=== PATIENT | male | born 1960 | race Caucasian/White ===

== ENCOUNTER 2019-07-04 17:05 | Observation (INO) ==
[2019-07-04] MEDS ORDERED: Aspirin 325 MG TABLET PO ONE (17:29)
[2019-07-04 18:11] LABS: Basophils # 0.1 K/mcL (0.0-0.2); Basophils % 0.5 %; Eosinophils # 0.4 K/mcL (0.0-0.6); Eosinophils % 3.8 %; Hemoglobin 15.1 g/dL (12.9-16.9); Immature Granulocytes % 0.5 % (0-4); Lymphocytes # 4.1 K/mcL (0.6-4.6); Lymphocytes % 36.5 %; Mean Corpuscular HGB Conc 33.6 g/dL (31.6-35.5); Mean Corpuscular Hemoglobin 29.7 pg (28.0-33.3); Mean Corpuscular Volume 88.4 fL (83.0-100.0); Monocytes # 0.9 K/mcL (0.0-1.3); Monocytes % 8.3 %; Neutrophils # 5.7 K/mcL (1.6-8.9); Platelet Count 214 K/mcL (140-400); Red Blood Count 5.09 M/mcL (4.19-5.50); Red Cell Distribution Width 12.5 % (11.5-14.5); Segmented Neutrophils % 50.4 %; White Blood Count 11.2 K/mcL (4.3-11.1)
[2019-07-04 18:38] LABS: BUN/Creatinine Ratio 12 (6-26); Blood Urea Nitrogen 14 mg/dL (6-20); Calcium 9.4 mg/dL (8.6-10.3); Carbon Dioxide 25 mEq/L (23-29); Chloride 102 mEq/L (98-107); Glucose 142 mg/dL (70-105); Osmolality,Calculated 287 (280-300); Potassium 3.5 mEq/L (3.5-5.1); Sodium 137 mEq/L (136-145); Troponin I < 0.03 ng/mL (< 0.04); eGFR For African Americans > 60 (> 60); eGFR For Non-African Americans > 60 (> 60)
[2019-07-04] MEDS ORDERED: Naloxone 0.4 MG/ML INJ IVP PRN (21:46)
[2019-07-04] MEDS ORDERED: Mag Hydrox/Al Hydrox/Simeth 30 ML UDC PO PRN (21:46)
[2019-07-04] MEDS ORDERED: Acetaminophen 325 MG TABLET PO PRN (21:46)
[2019-07-04] MEDS ORDERED: Ondansetron ODT 4 MG TAB.RAPDIS SL PRN (21:46)
[2019-07-04] MEDS ORDERED: GI Cocktail 40 ML EACH PO PRN (22:22)
[2019-07-05 01:04] LABS: Hematocrit 45.6 % (37.5-50.1); Hemoglobin 15.3 g/dL (12.9-16.9); Mean Corpuscular HGB Conc 33.6 g/dL (31.6-35.5); Mean Corpuscular Hemoglobin 29.7 pg (28.0-33.3); Mean Corpuscular Volume 88.5 fL (83.0-100.0); Mean Platelet Volume 10.8 fL (9.4-12.4); Platelet Count 215 K/mcL (140-400); Red Blood Count 5.15 M/mcL (4.19-5.50); Red Cell Distribution Width 12.8 % (11.5-14.5); White Blood Count 11.2 K/mcL (4.3-11.1)
[2019-07-05 01:22] LABS: BUN/Creatinine Ratio 12 (6-26); Blood Urea Nitrogen 13 mg/dL (6-20); Calcium 9.3 mg/dL (8.6-10.3); Carbon Dioxide 27 mEq/L (23-29); Chloride 103 mEq/L (98-107); Chol/HDL Ratio 5.1 (0-4.9); Cholesterol 190 mg/dL (< 200); Glucose 95 mg/dL (70-105); HDL Cholesterol 37 mg/dL (40-59); LDL Cholesterol,Calculated 106 mg/dL (0-99); Osmolality,Calculated 284 (280-300); Sodium 137 mEq/L (136-145); Triglycerides 236 mg/dL (< 150); eGFR For African Americans > 60 (> 60); eGFR For Non-African Americans > 60 (> 60)
[2019-07-05] MEDS ORDERED: *HR* Enoxaparin 40 MG/0.4 ML SYRINGE SQ SCH (06:00)
[2019-07-05 07:23] VITALS: BP 119/75
[2019-07-05] MEDS ORDERED: Aspirin Enteric Coated 81 MG Tablet PO SCH (09:00)
[2019-07-05] MEDS ORDERED: Pantoprazole 40 MG VIAL IVP SCH (09:00)
== END 2019-07-05 11:50 | disposition home or self-care (01) ==
LOC: 3BNU 17:05 → EMEROOARM 17:05 → SUATTDRO 21:00 → 3BNU 22:53
PROVIDERS: ADMIT Internal Medicine; ATTEND Internal Medicine